=== PATIENT | male | born 1970 | race Caucasian/White ===

== ENCOUNTER 2017-12-21 09:07 | Day surgery (SDC) | payer BC ==
[2017-12-17 10:47] VITALS: BMI 29.2
[~2017-12-21 09:07] MED LIST: LACTATED RINGERS 1,000 ML IV SCH; LIDOCAINE 1% 20 ML VIAL (10MG/ML) FOR IV START INTRADERMA PRN
[2017-12-21 09:24] VITALS: TEMP 97.6
[2017-12-21] MEDS ORDERED: PROPOFOL 10 MG/ML 20 ML VIAL IV ONE (10:33)
--- NOTE | 2017-12-21 10:58 | P.PCN ---
Date of Procedure: 12/21/17 Procedure(s) Performed: Procedure: Total colonoscopy. Preoperative diagnosis: Screening for neoplasia, patient has family history of colon cancer in his father. Postoperative diagnosis: Sigmoid diverticulosis with no evidence of acute diverticulitis, strictures, polyps or cancer. Preparation: HalfLytely prep. Sedation: Was provided by anesthesia. Brief clinical history: The patient is a 47-year-old male who is scheduled for this evaluation for screening for neoplasia because of family history of colon cancer in his father. He had a prior exam around 7 years ago. The patient has no abdominal complaints or change in bowel habits. He had intermittent fresh bleeding per rectum around 2 months ago which has improved with increasing the fiber in his diet. Procedure: With the patient on his left lateral decubitus position and after informed consent and adequate sedation the perianal area was inspected and it did not show any fissures or fistulas. There were no masses felt on digital rectal examination. The Olympus CFQ 160L video colonoscope was then inserted in the rectum in the usual fashion and advanced to the cecum. There were several diverticular orifices seen scattered in the sigmoid but there was no evidence of acute diverticulitis or strictures. No polyps or tumors were seen. The mucosa appeared healthy. I retroflexed the endoscope in the rectum before the endoscope was withdrawn. Low-grade internal hemorrhoids were noted with no evidence of bleeding at the time of this exam. The patient tolerated the procedure well. Plan: The patient was reassured. Discussed dietary measures and local care for hemorrhoids. He will follow up with you as planned and I recommended repeat exam in 5 years.
[2017-12-21 11:26] VITALS: BP 120/66; PULSE 52; RESP 16
== END 2017-12-21 11:47 | disposition home or self-care (01) ==
LOC: ORWHC2ENDO 09:07
DX: Z12.11 Encounter for screening for malignant neoplasm of colon (principal); K57.30 Diverticulosis of large intestine without perforation or abscess without bleeding; K64.8 Other hemorrhoids; Z80.0 Family history of malignant neoplasm of digestive organs
CPT/HCPCS: J2704; G0105

== ENCOUNTER 2018-04-16 07:07 | Emergency (ER) | payer BC ==
[2018-04-16 07:14] VITALS: BP 157/71; PULSE 78; RESP 18; TEMP 97.9
--- NOTE | 2018-04-16 08:12 | ED ---
General Adult HPI - General Chief complaint: Wound/Laceration Stated complaint: Laceration on Head Source: patient, RN notes reviewed Mode of arrival: ambulatory Limitations: no limitations - History of Present Illness Initial comments: Is a 47-year-old male who states he got up this morning was a little lightheaded and fell over himself on the corner of a wall and split his forehead open. Patient states he did not lose consciousness he has no headache no neck pain. Patient has no numbness or weakness. Patient states he has had a tetanus recently. Patient denies any chest pain palpitations difficulty breathing shortness of breath. Patient denies any nausea vomiting or diarrhea recently however he states is probably dehydrated because he worked all day and didn't drink much. Patient states he has had this happen in the past. Patient does not want any workup at all today just would like his head sutured up - Related Data Home Medications Medication Instructions Recorded Confirmed Calcium Polycarbophil [Fiber-Lax] 625 mg PO DAILY 04/16/18 04/16/18 Cyanocobalamin (Vitamin B-12) 1,000 mcg PO DAILY 04/16/18 04/16/18 [Vitamin B-12] Ibuprofen [Advil] 600 mg PO Q6HR PRN 04/16/18 04/16/18 [place]-3 Fatty Acids/Fish Oil [Fish 1 each PO DAILY 04/16/18 04/16/18 Oil 1,000 mg Softgel] Allergies Allergy/AdvReac Type Severity Reaction Status Date / Time No Known Allergies Allergy Verified 04/16/18 07:26 Review of Systems ROS Statement: Those systems with pertinent positive or pertinent negative responses have been documented in the HPI. ROS Other: All systems not noted in ROS Statement are negative. Past Medical History Past Medical History: No Reported History History of Any Multi-Drug Resistant Organisms: None Reported Additional Past Surgical History / Comment(s): COLONOSCOPY Past Anesthesia/Blood Transfusion Reactions: No Reported Reaction Past Psychological History: No Psychological Hx Reported Smoking Status: Former smoker Past Alcohol Use History: Occasional Past Drug Use History: None Reported - Past Family History Mother Family Medical History: No Reported History Father Family Medical History: Cancer Additional Family Medical History / Comment(s): COLON CANCER General Exam - General Exam Comments Initial Comments: GENERAL Patient is well-developed and well-nourished. Patient is in mild distress. Patient has a 1.5 cm avulsion of the skin on the right side of his forehead. The width of the avulsion is 1 cm ENT Nose has a superficial abrasion. There is no bony tenderness NEURO The patient is alert and oriented 3 PYSCH Patient has normal interpersonal interactions. MUSCULOSKELETAL All 4 times and full range of motion Limitations: no limitations Course Vital Signs 04/16/18 07:12 Temperature 97.9 F Pulse Rate 78 Respiratory 18 Rate Blood Pressure 157/71 O2 Sat by Pulse 99 Oximetry Procedures - Laceration Laceration #1 Consent Obtained: verbal consent Time Out Performed: Yes Indication: laceration Site: face Description: avulsion Depth: simple, single layer Anesthetic Used: lidocaine 1% Anesthesia Technique: local infiltration Pre-repair: wound explored Type of Sutures: nylon Size of Sutures: 5-0 Technique: simple, interrupted Patient Tolerated Procedure: well Disposition Clinical Impression: Dizzy, Forehead laceration Disposition: HOME SELF-CARE Condition: Good Instructions: Laceration (ED) Additional Instructions: Sutures should come out in 5 days Is patient prescribed a controlled substance at d/c from ED?: No Referrals: Mychal Ayala MD [Primary Care Provider] - 1-2 days Time of Disposition: 08:12
== END 2018-04-16 08:25 | disposition home or self-care (01) ==
LOC: EC 07:07
DX: S01.81XA Laceration without foreign body of other part of head, initial encounter (principal); R42 Dizziness and giddiness; Z87.891 Personal history of nicotine dependence; W19.XXXA Unspecified fall, initial encounter
CPT/HCPCS: 12011; 99282

== ENCOUNTER 2019-04-11 11:58 | Emergency (ER) | payer BC ==
[2019-04-11 12:48] VITALS: BP 156/73; PULSE 81; RESP 16; TEMP 98.7
--- NOTE | 2019-04-11 12:58 | ED ---
Wound/Laceration HPI - General Chief Complaint: Wound/Laceration Stated Complaint: lac left arm Time Seen by Provider: 04/11/19 12:32 Source: patient Mode of arrival: ambulatory Limitations: no limitations - History of Present Illness Initial Comments: Patient is a 48-year-old male presenting to the ER with laceration on his left forearm. States he was trying to strip some wiring, and slipped and cut into his palmar side of his left forearm. Admits to being up-to-date with tetanus. Bleeding is controlled with bandage and pressure right now. No other complaints. - Related Data Home Medications Medication Instructions Recorded Confirmed Calcium Polycarbophil [Fiber-Lax] 625 mg PO DAILY 04/16/18 04/16/18 Cyanocobalamin (Vitamin B-12) 1,000 mcg PO DAILY 04/16/18 04/16/18 [Vitamin B-12] Ibuprofen [Advil] 600 mg PO Q6HR PRN 04/16/18 04/16/18 [place]-3 Fatty Acids/Fish Oil [Fish 1 each PO DAILY 04/16/18 04/16/18 Oil 1,000 mg Softgel] Allergies Allergy/AdvReac Type Severity Reaction Status Date / Time No Known Allergies Allergy Verified 04/11/19 12:45 Review of Systems ROS Statement: Those systems with pertinent positive or pertinent negative responses have been documented in the HPI. ROS Other: All systems not noted in ROS Statement are negative. Past Medical History Past Medical History: No Reported History History of Any Multi-Drug Resistant Organisms: None Reported Additional Past Surgical History / Comment(s): COLONOSCOPY Past Anesthesia/Blood Transfusion Reactions: No Reported Reaction Past Psychological History: No Psychological Hx Reported Smoking Status: Former smoker Past Alcohol Use History: Occasional Past Drug Use History: None Reported - Past Family History Mother Family Medical History: No Reported History Father Family Medical History: Cancer Additional Family Medical History / Comment(s): COLON CANCER General Exam - General Exam Comments Initial Comments: GENERAL: Well-appearing, well-nourished and in no acute distress. HEAD: Atraumatic, normocephalic. EYES: Pupils equal round and reactive to light, extraocular movements intact, sclera anicteric, conjunctiva are normal. ENT: TMs normal, nares patent, oropharynx clear without exudates. Moist mucous membranes. NECK: Normal range of motion, supple without lymphadenopathy or JVD. LUNGS: Breath sounds clear to auscultation bilaterally and equal. No wheezes rales or rhonchi. HEART: Regular rate and rhythm without murmurs, rubs or gallops. ABDOMEN: Soft, nontender, normoactive bowel sounds. No guarding, no rebound. No masses appreciated. : Deferred EXTREMITIES: Normal range of motion, no pitting or edema. No clubbing or cyanosis. NEUROLOGICAL: Cranial nerves II through XII grossly intact. Normal speech, normal gait. PSYCH: Normal mood, normal affect. SKIN: Warm, Dry, normal turgor, no rashes. Limitations: no limitations Expanded Type of lesion: Present: laceration Course Vital Signs 04/11/19 12:45 Temperature 98.7 F Pulse Rate 81 Respiratory 16 Rate Blood Pressure 156/73 O2 Sat by Pulse 99 Oximetry Procedures - Laceration Laceration #1 Indication: laceration Site: other (Left forearm) Size (cm): 7 Description: linear Depth: simple, single layer Anesthetic Used: lidocaine 1%, with epi Anesthesia Technique: local infiltration Amount (mls): 3 Pre-repair: irrigated extensively Type of Sutures: nylon, vicryl Size of Sutures: 4-0 Number of Sutures: 16 (4 sub Q sutures internal using 4-0 vicryl, 12 simple sutures with 4-0 nylon) Technique: simple, interrupted Patient Tolerated Procedure: well Medical Decision Making - Medical Decision Making Patient is a 48-year-old male presents to ER with left forearm laceration he sustained today while trying to strip some wire. On exam patient had 7 cm laceration to the left palmar aspect of the forearm with exposed subq fat. Wound was irrigated, 4 Vicryl 4-0 sutures were placed in subcutaneous fat layer, 12 simple interrupted sutures placed with 4-0 nylon. Patient tolerated procedure well. Patient discharged home. Disposition Clinical Impression: Laceration of forearm, left Disposition: HOME SELF-CARE Condition: Stable Instructions (If sedation given, give patient instructions): Care For Your Stitches (ED), Laceration (ED) Additional Instructions: Please return to the Emergency Department if symptoms worsen or any other concerns. Have sutures removed and 10-12 days. Watch for signs of infection such as increasing pain, redness, discharge from the area. Is patient prescribed a controlled substance at d/c from ED?: No Referrals: Mychal Ayala MD [Primary Care Provider] - 1-2 days
[2019-04-11] MEDS ORDERED: LIDOCAINE 1%-EPI 1:100,000 20 ML VIAL SQ STA (13:07)
[2019-04-11] MEDS ORDERED: SODIUM CHLORIDE 0.9% IRRIG 1,000 ML BTL IRRIGATION ONE (13:30)
== END 2019-04-11 14:21 | disposition home or self-care (01) ==
LOC: EC 11:58
DX: S51.812A Laceration without foreign body of left forearm, initial encounter (principal); Z87.891 Personal history of nicotine dependence; Z79.899 Other long term (current) drug therapy; W26.0XXA Contact with knife, initial encounter
CPT/HCPCS: 12032; 99282